=== PATIENT | male | born 1975 | race Caucasian/White ===

== ENCOUNTER → 2023-05-15 14:16 | Outpatient (CLI) | payer BC, SELFPAY ==
--- NOTE | ~2023-05-15 | MR_ITS ---
EXAMINATION: MR cervical spine wo con DATE: 05/15/2023 14:47 INDICATION: Radiculopathy, cervical region. Neck pain. Right hand numbness. TECHNIQUE: Magnetic resonance imaging (MRI) of the cervical spine was performed without intravenous c ontrast. COMPARISON: None FINDINGS: Bone alignment is normal. Vertebral body heights are normal. There is mildly decreased disc height at C4-C5, C5-C6, and C6-C7. The spinal cord signal intensity is normal. The following disc le vels are specifically discussed: C2-C3: The disc does not extend beyond the endplate margin. There is no uncovertebral joint osteoarth ritis. There is mild right and moderate left facet joint osteoarthritis. There is no neural foraminal stenosis. There is no central canal stenosis. C3-C4: There is a central protrusion. There is no uncovertebral joint osteoarthritis. There is mild b ilateral facet joint osteoarthritis. There is no neural foraminal stenosis. There is mild central can al stenosis. C4-C5: There is a right central extrusion. There is mild bilateral uncovertebral joint osteoarthritis . There is mild left facet joint osteoarthritis. There is no neural foraminal stenosis. There is mode rate central canal stenosis with ventral and dorsal indentation of the spinal cord. C5-C6: The disc is bulging. There is moderate bilateral uncovertebral joint osteoarthritis. There is no facet joint osteoarthritis. There is mild bilateral neural foraminal stenosis. There is moderate c entral canal stenosis with ventral and dorsal indentation of the spinal cord. C6-C7: The disc is bulging. There is moderate bilateral uncovertebral joint osteoarthritis. There is mild bilateral facet joint osteoarthritis. There is mild bilateral neural foraminal stenosis. There i s moderate central canal stenosis with ventral and dorsal indentation of the spinal cord. C7-T1: There is a right central extrusion. There is no uncovertebral joint osteoarthritis. There is m oderate bilateral facet joint osteoarthritis. There is mild bilateral neural foraminal stenosis. Ther e is mild central canal stenosis. IMPRESSION: 1. Moderate cervical spondylosis. Reviewed, dictated and finalized at location A.
== END ==
PROVIDERS: PCP Family Medicine; Visit Provider Family Medicine
DX: M47.22 Other spondylosis with radiculopathy, cervical region (principal)
CPT/HCPCS: 72141

== ENCOUNTER 2024-06-17 10:46 | Outpatient (CLI) | payer BC, SELFPAY | END 2024-06-17 10:47 | disposition home or self-care (01) | LOC: ANHAUDIO 10:47 | PROVIDERS: PCP Family Medicine; Visit Provider Family Medicine | DX: H90.6 Mixed conductive and sensorineural hearing loss, bilateral (principal) | CPT/HCPCS: 92557; 92567 ==

== ENCOUNTER 2024-08-16 09:17 | Outpatient (CLI) | payer BC, SELFPAY ==
--- NOTE | 2024-08-16 11:00 | NEURO_ITS ---
Impression: # Complains of right 5th finger weakness. History of cervical nerve root problems. # Normal Nerve Conduction Study. # No Carpal Tunnel Syndrome or ulnar neuropathy. # Normal needle/EMG exam with no fibs or neurogenic changes. Nerve Conduction Studies Anti Sensory Summary Table Stim Site NR Peak (ms) P-T Amp (?V) Site1 Site2 Delta-P (ms) Dist (cm) Nile (m/s) Left Median Anti Sensory (2-3nd Digit) Wrist 3.3 41.0 Wrist 2-3nd Digit 3.3 14.0 42 Wrist 3.2 38.2 Wrist 2-3nd Digit 3.3 14.0 42 Right Median Anti Sensory (2-3nd Digit) Wrist 3.1 65.8 Wrist 2-3nd Digit 3.1 14.0 45 Wrist 3.1 26.5 Wrist 2-3nd Digit 3.1 14.0 45 Left Radial Anti Sensory (Base 1st Digit) Wrist 2.1 28.2 Wrist Base 1st Digit 2.1 0.0 Right Radial Anti Sensory (Base 1st Digit) Wrist 2.1 16.8 Wrist Base 1st Digit 2.1 0.0 Left Ulnar Anti Sensory (5th Digit) Wrist 2.5 14.6 Wrist 5th Digit 2.5 14.0 56 Right Ulnar Anti Sensory (5th Digit) Wrist 2.5 47.7 Wrist 5th Digit 2.5 14.0 56 Motor Summary Table Stim Site NR Onset (ms) O-P Amp (mV) Site1 Site2 Delta-0 (ms) Dist (cm) Nile (m/s) Left Median Motor (Abd Poll Brev) Wrist 3.1 1.8 Elbow Wrist 5.2 30.0 58 Elbow 8.3 4.6 Right Median Motor (Abd Poll Brev) Wrist 3.5 5.8 Elbow Wrist 5.6 31.0 55 Elbow 9.1 5.5 Left Ulnar Motor (Abd Dig Minimi) Wrist 2.4 3.9 A Elbow Wrist 6.0 33.0 55 A Elbow 8.4 3.4 Right Ulnar Motor (Abd Dig Minimi) Wrist 2.9 5.5 A Elbow Wrist 5.8 32.0 55 A Elbow 8.7 4.7 F Wave Studies NR F-Lat (ms) L-R F-Lat (ms) Left Median (Mrkrs) (Abd Poll Brev) 31.29 0.47 Right Median (Mrkrs) (Abd Poll Brev) 30.82 0.47 Left Ulnar (Mrkrs) (Abd Dig Min) 31.35 1.33 Right Ulnar (Mrkrs) (Abd Dig Min) 32.68 1.33 EMG Side Muscle Nerve Root Ins Act Fibs Amp Dur Recrt Comment Right 1stDorInt Ulnar C8-T1 Nml Nml Nml Nml Nml Right Ext Indicis Radial (Post Int) C7-8 Nml Nml Nml Nml Nml Right Ext Digitorum Radial (Post Int) C7-8 Nml Nml Nml Nml Nml Right BrachioRad Radial C5-6 Nml Nml Nml Nml Nml Right PronatorTeres Median C6-7 Nml Nml Nml Nml Nml Right Abd Poll Brev Median C8-T1 Nml Nml Nml Nml Nml Right ABD Dig Min Ulnar C8-T1 Nml Nml Nml Nml Nml Left 1stDorInt Ulnar C8-T1 Nml Nml Nml Nml Nml Left Ext Indicis Radial (Post Int) C7-8 Nml Nml Nml Nml Nml Left Ext Digitorum Radial (Post Int) C7-8 Nml Nml Nml Nml Nml Left BrachioRad Radial C5-6 Nml Nml Nml Nml Nml Left PronatorTeres Median C6-7 Nml Nml Nml Nml Nml Left Abd Poll Brev Median C8-T1 Nml Nml Nml Nml Nml Left ABD Dig Min Ulnar C8-T1 Nml Nml Nml Nml Nml Right Biceps Musculocut C5-6 Nml Nml Nml Nml Nml Right Triceps Radial C6-7-8 Nml Nml Nml Nml Nml Right Deltoid Axillary C5-6 Nml Nml Nml Nml Nml Left Biceps Musculocut C5-6 Nml Nml Nml Nml Nml Left Triceps Radial C6-7-8 Nml Nml Nml Nml Nml Left Deltoid Axillary C5-6 Nml Nml Nml Nml Nml MTDD
== END 2024-08-16 09:18 | disposition home or self-care (01) ==
PROVIDERS: PCP Family Medicine; Visit Provider Family Medicine
DX: M54.12 Radiculopathy, cervical region (principal); M47.812 Spondylosis without myelopathy or radiculopathy, cervical region
CPT/HCPCS: 95886; 95911

== ENCOUNTER 2024-09-12 18:41 | Emergency (ER) | payer BC, SELFPAY ==
--- NOTE | ~2024-09-12 | XR_ITS ---
EXAMINATION: XR chest 2V DATE: 09/12/2024 19:19 INDICATION: Cough. TECHNIQUE: Frontal and lateral views of the chest were obtained. COMPARISON: Chest 2 views 08/12/2010 FINDINGS: There is a 7 mm nodule in right upper lobe. No pleural effusion or pneumothorax. The heart size is normal. IMPRESSION: 1. 7 mm nodule in right lung upper lobe, probably benign. Noncontrast chest CT is recommended. Reviewed, dictated and finalized at location A. APPRENTICE MECHANIC
[2024-09-12 18:56] VITALS: BP 160/94; PULSE 111; RESP 16; TEMP 37.6; O2SAT 98
--- NOTE | 2024-09-12 19:07 | ED_ITS ---
HPI - URI/Sore Throat General Chief Complaint: Upper Respiratory Infection Stated Complaint: coughing Time Seen by Provider: 09/12/24 19:07 Source: patient, RN notes reviewed and old records reviewed Mode of arrival: ambulatory Limitations: no limitations History of Present Illness HPI Narrative: 49-year-old male presents to the [facility] with complaints of a cough. Patient reports exposure to pneumonia. Patient with cough times 6-7 days. Patient reports fever of 102 this morning Onset (ago): day(s) (6-7) Related Data Allergies Allergy/AdvReac Type Severity Reaction Status Date / Time No Known Allergies Allergy Verified 09/12/24 19:02 Review of Systems Review of Systems: All systems reviewed & are unremarkable except as noted in HPI and below Constitutional: Constitutional: Reports as per HPI and Reports fever(s) ENT: Reports system reviewed and no additional complaints, except as documented Cardiovascular: Cardiovascular: Reports no additional cardiovascular complaints, Denies chest pain and Denies dyspnea Respiratory: Respiratory: Reports as per HPI, Denies chest congestion, Reports cough and Denies dyspnea Gastrointestinal: Gastrointestinal: Reports no additional gastrointestinal complaints, Denies abdominal pain, Denies nausea and Denies vomiting Musculoskeletal: Musculoskeletal: Reports no additional musculoskeletal comp laints Integumentary/Breasts: Skin/Breast: Reports system reviewed and no additional complaints, except as docu PMFSH Past Medical History Medical History Elevated liver enzymes IFG (impaired fasting glucose) Social History Social History Smoking status: Never smoker Alcohol intake: current Alcohol use details: social drinker Substance use: never Substance use type: does not use Lack of Transportation: No Lack of Food: Never True Current Housing: I Have Housing Concerned About Future Housing: No Difficulty Paying Gas/Electric Bills: No Difficulty Paying for Meds: No Currently Unemployed: No Education: Master's Degree or Higher Difficulty w/ Childcare or Family Care: No Living arrangements: with family Occupation/Education: occupation Gender identity (if verbalized by the patient): Male Comments At the time of my signature, I reviewed and agree with the nursing past medical, surgical, social, and family history. There is no relevant family history pertinent to the patient complaint. Exam Const: General: cooperative, healthy appearing, comfortable, no acute distress, well developed, alert and well nourished Nutritional Appearance: well nourished Orientation/consciousness: patient oriented x3 Limitations: no limitations HENMT: Head: normal to inspection Ears: hearing grossly normal bilaterally, external ears normal, TM's normal bilaterally, EAC's normal, mastoids normal and no periauricular adenopathy Face/Nose/Sinus: Normal external nose present, normal facial exam and face symmetric Face and sinus: normal facial exam and face symmetric Mouth: Yes Normal oral and palatal mucosa present, Yes lip normal and Yes tongue normal Throat: posterior oropharynx normal, uvula midline, postnasal drainage and no uvular edema Eyes: General: appearance normal, both eyes and all related structures Alignment and Position: alignment normal Periorbital: periorbital findings normal Neck: Neck: normal visual inspection, full ROM, no lymphadenopathy and no meningeal signs Chest: Chest palpation & inspection: normal inspection of the chest Resp: Effort & Inspection: normal respiratory effort and able to speak in complete sentences Auscultation: clear to auscultation bilaterally, no crackles, no rales, no rhonchi, no wheezes and diminished lung sounds on the left in the lower lung chow Cardio: Rate: regular rate Skin: General skin exam: normal color and no rashes or lesions noted Lesions: no lesions Rashes: no rashes Wounds: no wounds Neuro: General: patient oriented x3, gait normal, tone normal, moves all extremities and no meningeal signs Cognition (Neuro): normal cognition Speech: normal speech Gait exam (Neuro): Normal gait present Extrem: General: normal to inspection, full ROM, capillary refill normal and normal gait Psych: Appearance: grossly normal and well kempt Mental Status: mental status grossly normal Speech and movement: Normal speech and movement present and Clear speech present Affect: normal affect Attitude: cooperative Course Course Level of Care: Express Care Visit Vital Signs Vital signs: Vital Signs Temperature 99.7 F H 09/12/24 18:56 Pulse Rate 111 H 09/12/24 18:56 Respiratory Rate 16 09/12/24 18:56 Blood Pressure 160/94 H 09/12/24 18:56 Pulse Oximetry 98 09/12/24 18:56 Oxygen Delivery Room Air 09/12/24 18:56 Temperature 99.7 F H 09/12/24 18:56 Pulse Rate 111 H 09/12/24 18:56 Respiratory Rate 16 09/12/24 18:56 Blood Pressure 160/94 H 09/12/24 18:56 Pulse Oximetry 98 09/12/24 18:56 Oxygen Delivery Room Air 09/12/24 18:56 Reviewed MDM - URI/Sore Throat MDM Narrative Medical decision making narrative: Patient sitting comfortably in exam room. Nontoxic, vitals-blood pressure elevated, mildly tachycardic, low-grade temperature Patient's x-ray does not show signs of pneumonia however with signs symptoms, vitals, exposure will treat with doxycycline Patient appropriate for outpatient treatment and follow-up Discussed incidental finding with patient in regards to lung nodule, discussed calling primary care provider for evaluation and possible CT scan Discharge instructions reviewed with patient, as well as provided in writing per nursing staff. The instructions also include specific and strict return/GO TO THE ER as well as f/u information. All questions have been answered, and the patient deny any further questions with discharge and discharge plan. Some parts of this dictation were generated by voice recognition software and may contain typographical and/or grammatical inaccuracies. Differential Diagnosis Differential diagnosis: Likely upper respiratory infection, otitis media, sinusitis, viral infection, bronchitis and pharyngitis Imaging Data Radiologist's impression: EXAMINATION: XR chest 2V DATE: 09/12/2024 19:19 INDICATION: Cough. TECHNIQUE: Frontal and lateral views of the chest were obtained. COMPARISON: Chest 2 views 08/12/2010 FINDINGS: There is a 7 mm nodule in right upper lobe. No pleural effusion or pneumothorax. The heart size is normal. IMPRESSION: 1. 7 mm nodule in right lung upper lobe, probably benign. Noncontrast chest CT is recommended. Critical Care Time Critical Care Time Critical Care Time: No Discharge Plan Discharge Clinical Impression: Bronchitis, Incidental lung nodule, > 3mm and < 8mm Patient Disposition: Home, Self-Care Condition: Stable Instructions: Acute Bronchitis (ED) Additional Instructions: Today your chest x-ray did not show signs of pneumonia. There was incidental finding of a lung nodule on x-ray. It is recommended to follow-up as soon as possible with your primary care provider for further evaluation. It is very important to treat your symptoms. Drink plenty of water, Gatorade, Pedialyte, ice pops or Jell-O. -Alternate Tylenol and Motrin per package directions for fever or pain. You can alternate every 4 hours -Antihistamine medication such as Zyrtec/Claritin/Leila during the day can help improve symptoms. -doing daily nasal irrigations can help relieve pressure your sinuses. Things like a Neti pot -Use Flonase twice a day for 5 days then daily to help reduce the inflammation and dry up your sinuses. -You can also use Mucinex. Be sure to drink plenty of water with this medication at least 8 ounces with every dose and it is important to drink 8 to 10 glasses of water per day. Water is a natural decongestant -Eat and drink things that are easy to swallow, like tea or soup, or popsicles. -Oral rinses such as: Salt water gargles and/or may use topical anesthetic (eg. Chloraseptic spray) or lozenges to relieve dryness or throat pain). -Frequent hand washing or hand health education assistant is one of the best ways to prevent spread of infection. -Using a vaporizer or humidifier at night will also help thin secretions and help with coughing up phlegm. -Follow up with primary care provider in 7-10 days if condition is not improving - For new or worsening symptoms go directly to the nearest ER Patient Language: Fijian Prescriptions: New doxycycline monohydrate 100 mg tablet 100 mg PO BID Qty: 14 0RF Follow-up/Referrals: George Kan MD [Primary Care Provider] - Stand Alone Forms: Work/School Release IP Time of Disposition: 19:35
== END 2024-09-12 19:40 | disposition home or self-care (01) ==
PROVIDERS: Emergency Provider Nurse Practitioner; PCP Family Medicine
DX: J40 Bronchitis, not specified as acute or chronic (principal); R91.1 Solitary pulmonary nodule; R73.01 Impaired fasting glucose
CPT/HCPCS: 71046; 99213; G0463

== ENCOUNTER 2024-09-22 10:54 | Outpatient (CLI) | payer BC, SELFPAY ==
--- NOTE | ~2024-09-22 | CT_ITS ---
EXAMINATION: CT diagnostic chest wo con DATE: 09/22/2024 11:07 INDICATION: R91.1 - Solitary pulmonary nodule TECHNIQUE: Computed tomography (CT) of the chest was performed without intravenous contrast. Addition al 3D reconstructions utilizing coronal maximum intensity projection (MIP) were performed. Automated exposure control and iterative reconstruction technique were employed. The dose-length product was 13 7.84 mGy-cm. COMPARISON: None FINDINGS: Minimal biapical pleural-parenchymal scarring. Tiny calcified left lower lobe nodule at the posterior sulcus consistent with old granulomatous disease. There are subtle patchy groundglass opacities in t he bilateral upper lobes. No correlate for the nodular opacity projecting over the right upper lung o n the prior radiographs. No more dense consolidation, supply thickening to suggest pulmonary edema or pleural effusion. Heart size is normal. No pericardial effusion. Thoracic aorta is normal in caliber . No pathologically enlarged thoracic lymphadenopathy. Mild thoracic spondylosis. IMPRESSION: 1. No correlate for the prior nodular opacity projecting over the right upper lung. No other suspicio us pulmonary nodules identified. 2. Subtle groundglass opacities in the bilateral upper lobes which could be related to very mild pneu monia. Atypical or viral pneumonia, hypersensitivity pneumonitis or respiratory bronchiolitis interst itial lung disease. Reviewed, dictated and finalized at location B. D ATTENDANT IMPRESSION: 1. No correlate for the prior nodular opacity projecting over the right upper l jeanie. No other suspicious pulmonary nodules identified. 2. Subtle groundglass opacities in the bilateral upper lobes which could be rel ated to very mild pneumonia. Atypical or viral pneumonia, hypersensitivity pneu monitis or respiratory bronchiolitis interstitial lung disease.
== END 2024-09-22 10:55 | disposition home or self-care (01) ==
LOC: MICIMG 10:54
PROVIDERS: PCP Family Medicine; Visit Provider Family Medicine
DX: R91.8 Other nonspecific abnormal finding of lung field (principal); R91.1 Solitary pulmonary nodule
CPT/HCPCS: 71250

== ENCOUNTER 2024-12-20 19:47 | Emergency (ER) | payer BC, SELFPAY ==
--- NOTE | ~2024-12-20 | US_ITS ---
EXAMINATION: US venous doppler [facility] DATE: 12/20/2024 21:11 INDICATION: pain, swelling, . TECHNIQUE: Grayscale images without and with compression and Doppler images of the bilateral lower ex tremity veins were obtained. COMPARISON: None FINDINGS: The right common femoral vein, profunda (deep) femoral vein, femoral vein, popliteal vein, peroneal v ein, posterior tibial veins, gastrocnemius vein, and greater saphenous vein are patent. The left common femoral vein, profunda (deep) femoral vein, femoral vein, popliteal vein, peroneal v ein, posterior tibial veins, gastrocnemius vein, and greater saphenous vein are patent. IMPRESSION: Patent bilateral lower extremity veins. No evidence of deep venous thrombosis. Reviewed, dictated and finalized at location K.
[2024-12-20 19:48] VITALS: BP 181/92; PULSE 99; RESP 16; TEMP 36.6; O2SAT 100
[2024-12-20 20:15] VITALS: O2SAT 100
[2024-12-20 21:06] LABS: Basophils Percent Auto 0.4 % (0.2-1.2); Eosinophils Absolute Auto 0.1 K/mm3 (0-0.3); Eosinophils Percent Auto 1.6 % (0-4.4); Hematocrit 45.4 % (42.0-52.0); Hemoglobin 15.4 g/dL (14.0-18.0); Immature Granulocyte Absolute 0.01 K/mm3 (0.00-0.031); Immature Granulocyte Percent A 0.2 % (0-0.5); Lymphocytes Absolute Auto 0.85 K/mm3 (0.9-3.2); Lymphocytes Percent Auto 16.9 % (18.3-44.2); Mean Corpuscular HGB Conc 33.9 g/dl (32-36); Mean Corpuscular Hemoglobin 28.5 pg (26-34); Mean Corpuscular Volume 84.1 fl (80-100); Mean Platelet Volume 10.3 fl (7.4-10.4); Monocytes Absolute Auto 0.3 K/mm3 (0.1-0.6); Monocytes Percent Auto 6.4 % (2.6-8.5); Neutrophils Absolute Auto 3.7 K/mm3 (1.3-6.7); Neutrophils Percent Auto 74.5 % (45.5-73.1); Platelet Count Result 243 k/mm3 (150-375); Red Cell Distribution Width 13.1 % (11.5-14.5)
[2024-12-20 21:07] LABS: Add Urine Microscopic? NO; Appearance Urine Clear (Clear); Bilirubin Urine Negative (Negative); Blood Urine Negative (Negative); Color Urine Yellow (Yellow); Glucose Urine UA Negative (Negative); Ketones Urine Negative (Negative); Leukocyte Esterase Ur Negative LEU/UL (Negative); Nitrate Urine Negative (Negative); Protein Urine Negative (Negative); Specific Grav Ur 1.024 (1.001-1.035); Urobilinogen Urine 0.2 mg/dL (<2.0); pH Urine 5.5 (5.0-9.0)
[2024-12-20 21:16] LABS: Alanine Aminotransferase 49 U/L (6-50); Albumin Level 4.6 g/dL (3.5-5.1); Alkaline Phosphatase 126 U/L (38-126); Anion Gap 9 mmol/L (4-12); Aspartate Amino Transferase 31 U/L (17-59); Bilirubin,Total 0.5 mg/dL (0.2-1.3); Blood Urea Nitrogen 17 mg/dL (9-20); Calcium 9.5 mg/dL (8.4-10.2); Carbon Dioxide 30 mmol/L (22-30); Chloride 102 mmol/L (98-107); Creatine Kinase 98 U/L (55-170); Estimated CRCL calculation 88 ml/min; Estimated Glomerular Filt Rate > 60; Glucose 159 mg/dL (65-110); Potassium 3.6 mmol/L (3.4-5.0); Sodium 141 mmol/L (137-145)
--- NOTE | 2024-12-20 21:19 | ED_ITS ---
HPI - Extremity Problem General Chief complaint: Extremity Problem,Nontraumatic Stated complaint: Bilat ankle swelling Time Seen by Provider: 12/20/24 20:27 Source: patient Mode of arrival: ambulatory Limitations: no limitations History of Present Illness [facility] Narrative: This is a 41-year-old male who presents to the ED for chief complaint of bilateral ankle swelling over the past couple of weeks. Patient endorses muscle soreness throughout lower extremities and somewhat to the upper extremities as well. States that this all started after playing hockey for the 1st time in many years. States that he has had some edema to the ankles which was concerning and was told by a family member to come to the ER to get checked out. States that he has had a sore throat but has not been feeling overly ill. Denies cough, shortness of breath, chest pain, palpitations. Related Data Allergies Allergy/AdvReac Type Severity Reaction Status Date / Time No Known Allergies Allergy Verified 12/20/24 19:48 Review of Systems 2 Review of Systems: All systems as dictated in [facility] Past Medical History Medical History Elevated liver enzymes IFG (impaired fasting glucose) Social History Social History Smoking status: Never smoker Alcohol intake: current Alcohol use details: social drinker Substance use: never Substance use type: does not use Lack of Transportation: No Lack of Food: Never True Current Housing: I Have Housing Concerned About Future Housing: No Difficulty Paying Gas/Electric Bills: No Difficulty Paying for Meds: No Currently Unemployed: No Education: Master's Degree or Higher Difficulty w/ Childcare or Family Care: No Living arrangements: with family Occupation/Education: occupation Gender identity (if verbalized by the patient): Male Exam 2 Narrative: GENERAL: Well-appearing, well-nourished, and in no acute distress. HEAD: Normocephalic, atraumatic. EYES: PERRLA and EOMI. ENT: Nares clear, no rhinorrhea or epistaxis. Mucous membranes moist. Oropharynx without tonsillar hypertrophy exudate or other lesions. NECK: Supple. No adenopathy or masses. CHEST: No respiratory distress. Clear to auscultation. No wheezes rales or rhonchi HEART: Regular rate and rhythm. No murmur heard. Normal peripheral pulses. ABDOMEN: Soft, nontender, nondistended, normal active bowel sounds. MSK: 2+ pitting edema to the left ankle and l ower [place]ham. There is mild erythema and tenderness to the medial ankle. No warmth. Full range of motion of the he ankle. No crepitus. Neurovascular intact distally. Mild swelling to the right ankle but no pitting edema. Minimal erythema and no tenderness. Neurovascular intact distally. SKIN: Warm, dry, no rash. NEURO: Alert and oriented x4. No focal deficits. PSYCH: Normal mood and affect. Course Vital Signs Vital signs: Vital Signs Temperature 97.9 F 12/20/24 19:48 Pulse Rate 99 12/20/24 19:48 Respiratory Rate 16 12/20/24 19:48 Blood Pressure 181/92 H 12/20/24 19:48 Pulse Oximetry 100 12/20/24 19:48 Oxygen Delivery Room Air 12/20/24 19:48 Temperature 97.9 F 12/20/24 19:48 Pulse Rate 96 12/20/24 21:50 Respiratory Rate 18 12/20/24 21:50 Blood Pressure 142/91 H 12/20/24 21:50 Pulse Oximetry 99 12/20/24 21:50 Oxygen Delivery Autopap 12/20/24 20:15 MDM - Extremity (Nontraumatic) MDM Narrative Medical decision making narrative: This is a 49-year-old male who presents to the ED for chief complaint of bilateral ankle swelling among other joint pains and sore throat. Vitals are normal. Exam remarkable for the above. Lab work is grossly unremarkable. Strep swab is negative. Ultrasound DVT study of the bilateral lower extremities are negative. Patient will be discharged in stable condition. Supportive measures discussed and return precautions given. Patient is understanding and agreeable with plan for discharge with PCP follow-up. Lab Data 12/20/24 20:59 12/20/24 20:59 Labs: Lab Results 12/20/24 12/20/24 Range/Units 20:59 21:00 WBC 5.0 (4.5-10.0) K/mm3 RBC 5.40 (4.6-6.20) M/mm3 Hgb 15.4 (14.0-18.0) g/dL Hct 45.4 (42.0-52.0) % MCV 84.1 (80-100) fl MCH 28.5 (26-34) pg MCHC 33.9 (32-36) g/dl RDW 13.1 (11.5-14.5) % Plt Count 243 (150-375) k/mm3 MPV 10.3 (7.4-10.4) fl Immature Gran % (Auto) 0.2 (0-0.5) % Neut % (Auto) 74.5 H (45.5-73.1) % Lymph % (Auto) 16.9 L (18.3-44.2) % [place] % (Auto) 6.4 (2.6-8.5) % Eos % (Auto) 1.6 (0-4.4) % Baso % (Auto) 0.4 (0.2-1.2) % Lymph # (Auto) 0.85 L (0.9-3.2) K/mm3 [place] # (Auto) 0.3 (0.1-0.6) K/mm3 Eos # (Auto) 0.1 (0-0.3) K/mm3 Baso # (Auto) 0.0 (0.0-0.1) K/mm3 Abs Immat Gran (auto) 0.01 (0.00-0.031) K/mm3 Absolute Neuts (auto) 3.7 (1.3-6.7) K/mm3 Absolute Nucleated RBC 0.000 (0.0-0.012) K/mm3 Nucleated RBC % 0.0 (0.0-0.2) % Sodium 141 (137-145) mmol/L Potassium 3.6 (3.4-5.0) mmol/L Chloride 102 (98-107) mmol/L Carbon Dioxide 30 (22-30) mmol/L Anion Gap 9 (4-12) mmol/L BUN 17 (9-20) mg/dL Creatinine 0.99 (0.7-1.3) mg/dL Estim Creat Clear Calc 88 ml/min Estimated GFR > 60 (59 - ) Glucose 159 H (65-110) mg/dL Calcium 9.5 (8.4-10.2) mg/dL Total Bilirubin 0.5 (0.2-1.3) mg/dL AST 31 (17-59) U/L ALT 49 (6-50) U/L Alkaline Phosphatase 126 (38-126) U/L Total Creatine Kinase 98 (55-170) U/L Total Protein 7.0 (6.3-8.2) g/dL Albumin 4.6 (3.5-5.1) g/dL Urine Color Yellow (Yellow) Urine Appearance Clear (Clear) Urine pH 5.5 (5.0-9.0) Ur Specific [place] 1.024 (1.001-1.035) Urine Protein Negative (Negative) mg/dL Urine Glucose (UA) Negative (Negative) mg/dL Urine Ketones Negative (Negative) mg/dL Ur Blood (Man) Negative (Negative) Urine Nitrate Negative (Negative) Urine Bilirubin Negative (Negative) Urine Urobilinogen 0.2 (<2.0) mg/dL Leukocyte Esterase Rfl Negative (Negative) VERONICA/UL Group A Strep (PCR) Not detected (Negative) Discharge Plan Discharge Clinical Impression: Lower extremity edema Patient Disposition: Home, Self-Care Condition: Stable Instructions: Antibiotic Form, Leg Edema (ED) Additional Instructions: Exam today is reassuring overall. Your blood pressure is elevated and this should be follow-up closely with your physician as well as follow-up for the leg swelling. If you have any new or worsening symptoms please return to the ER for further evaluation. Patient Language: Nigerian Prescriptions: No Action doxycycline monohydrate 100 mg tablet 100 mg PO BID Qty: 14 0RF Follow-up/Referrals: George Kan MD [Primary Care Provider] - Time of Disposition: 21:37
[2024-12-20 21:30] LABS: Strep Group A RT-PCR NOT DETECTED (Negative)
[2024-12-20 21:50] VITALS: BP 142/91; PULSE 96; RESP 18; O2SAT 99
== END 2024-12-20 21:46 | disposition home or self-care (01) ==
PROVIDERS: Emergency Provider Physician Assistant; PCP Family Medicine
DX: R60.0 Localized edema (principal)
CPT/HCPCS: 36415; 80053; 81003; 82550; 85025; 87651; 93970; 99284